=== PATIENT | female | born 1950 | race Asian ===

== ENCOUNTER 2020-06-26 12:34 | Emergency (ER) | payer OTHER, SELFPAY ==
[~2020-06-26] VITALS: Ht 152.4 cm; Wt 47.6 kg
[2020-06-26 12:36] VITALS: Ht 152.4 cm; Wt 47.6 kg
[2020-06-26 13:25] VITALS: BP 144/88
[2020-06-26 13:40] LABS: BASOPHIL % 0.4 % (0.2-1.3)
[2020-06-26 13:50] LABS: RED CELL DISTRIBUTION WIDTH 15.4 % (12.3-17.7)
[2020-06-26 13:51] LABS: rbc morphology (normal/abnorm) NORMAL (NORMAL)
[2020-06-26 14:19] LABS: ALKALINE PHOSPHATASE 177 U/L (46-116); ALT/SGPT 68 U/L (14-59); AST/SGOT 58 U/L (15-37); BILIRUBIN TOTAL 0.7 mg/dL (0.20-1.00); CALCIUM 11.3 mg/dL (8.5-10.1); CARBON DIOXIDE 28.8 mmol/L (21-32); CHLORIDE SERUM 93 mmol/L (98-107); CREATININE SERUM 0.8 mg/dL (0.6-1.0); GFR1 > 60 mL/min; GLUCOSE SERUM 126 mg/dL (74-106); LACTIC DEHYDROGENASE (LDH) 485 U/L (100-190); SODIUM SERUM 132 mmol/L (136-145); TOTAL PROTEIN, SERUM 7.9 g/dL (6.4-8.2)
[2020-06-26 14:20] LABS: ALBUMIN 2.3 g/dL (3.4-5.0)
[2020-06-26 14:22] LABS: POTASSIUM SERUM 2.8 mmol/L (3.5-5.1)
[2020-06-26 14:43] LABS: PLATELET COUNT 541 x10^3mcL (179-408)
[2020-06-26 17:46] LABS: C REACTIVE PROTEIN 22.5 mg/dL (<=0.9)
== END 2020-06-26 13:25 | disposition short-term general hospital (02) ==
LOC: ED 12:34
PROVIDERS: Emergency Medicine
DX: I21.3 ST elevation (STEMI) myocardial infarction of unspecified site (principal); J90 Pleural effusion, not elsewhere classified; Z20.828 Contact with and (suspected) exposure to other viral communicable diseases
CPT/HCPCS: 83880; 85378; U0003